=== PATIENT | female | born 1985 | race Caucasian/White ===

== ENCOUNTER → 2016-07-18 | Outpatient (CLI) | payer OTHER ==
[2014-09-02 16:53] VITALS: BP 102/62
[~2016-07-18] MED LIST: CHOL500024 INJ; CYCL10TA2 PO; TOPI50TA38 PO
--- NOTE | 2016-07-18 13:14 | KCIC ---
MR LUMBAR SPINE HISTORY:Reason For StudyReason: LOW BACK PAIN / Spl. Instructions: Prev. sent to Pacs / History: LBP into rt buttock, since 2015, NKI, Chronic LBP off on COMPARISON: None Technique: Sagittal T2, sagittal STIR, and sagittal T1-weighted images were obtained. Additional axial T1 and T2 weighted imaging was also performed. FINDINGS: Vertebral body height and alignment is maintained throughout the lumbar spine. There is a normal lumbar lordosis. No abnormal bone marrow signal is seen. The conus is in normal position without abnormal signal. There is degenerative disc dehydration at L4-L5. Paravertebral soft tissues are unremarkable. Visualized intra-abdominal contents are within normal limits. IMPRESSION: Mild degenerative disc dehydration at L4-L5. No central spinal or neural foraminal stenosis. Electronically signed by: Darrin Méndez (Jul 18, 2016 13:13:13)
== END | disposition home or self-care (01) ==
LOC: KCIC MRI 12:27
DX: M51.36 Other intervertebral disc degeneration, lumbar region (principal); E86.0 Dehydration
CPT/HCPCS: 72148

== ENCOUNTER → 2017-01-12 | Outpatient (CLI) | payer OTHER ==
[2014-09-02 16:53] VITALS: BP 102/62
--- NOTE | 2017-01-12 13:49 | KCIC ---
Indication: Irregular bleeding. Transabdominal and transvaginal pelvic sonography was performed. The uterus measures 6.1 x 2.1 x 4.4 cm. The endometrium is thin at 2 mm. No myometrial mass is detected. There are some calcifications in the region of the cervix, nonspecific but perhaps synechiae. The largest is approximately 9 mm x 8 mm in size. Ovarian evaluation is limited due to patient body habitus and bowel gas. The right ovary measures 2.2 x 1.4 x 1.6 cm and the left ovary measures 1.0 x 1.0 x 1.3 cm. There is blood flow to both ovaries. No adnexal mass or free fluid is seen. IMPRESSION: Essentially unremarkable transabdominal and transvaginal pelvic ultrasound. Electronically signed by: Robel Kingston MD (01/12/2017 1:46 PM) [id number]
== END | disposition home or self-care (01) ==
LOC: KCIC US 09:37
PROVIDERS: ATTEND Obstetrics & Gynecology
DX: N92.6 Irregular menstruation, unspecified (principal)
CPT/HCPCS: 76830; 76856

== ENCOUNTER → 2017-03-05 | Outpatient (CLI) | payer OTHER ==
[2014-09-02 16:53] VITALS: BP 102/62
--- NOTE | 2017-03-05 15:31 | RAD ---
APPROVED REPORT Test Type: Exercise Stress Nurse/Tech: issa bob Test Indications: chest pain Cardiac History and Allergies: NONE STATED, SEE EHR Medications: SEE EHR Medical History: FIBROMYALGIA, SEE EHR Resting ECG: SR Resting Heart Rate: 104 bpm Resting Blood Pressure: 123/81mmHg Pretest Chest Pain: No chest pain Nurse/Tech Notes LUNG SOUNDS CLEAR, S1S2 WNL. Consent: The procedure was explained to the patient in lay terms. Informed consent was witnessed. Ming eout was entered into [employer]. History and Stress Test performed by ANUPAM Abbott Stress Symptoms HEADACHE. POST EXERCISE Reason for Termination: Reached target heart rate Target HR: Yes Max HR: 170 bpm 90% of Maximum Predicted HR: 189 bpm Exercise duration: 8:00 min:sec, 3 Stage Exercise capacity: 10.0METs Max Blood Pressure: 146/77mmHg Blood Pressure response to exercise: Normal blood pressure response during stress. Heart Rate response to exercise: WNL Chest Pain: No. Arrhythmia: No. ST Change: No. INTERPRETATION Stress EKG Conclusion: Resting EKG shows a sinus tachycardia rate of 104 bpm and mild nonspecific ST segment changes. With exertion the patient has further mild nonspecific ST segment changes which are not diagnostic of ischemia. No EKG evidence of stress-induced ischemia. <Conclusion> Good exercise tolerance with the patient walking for 8 minutes on a Bernardo protocol. No reported chest pain with exertion. Mild tachycardia on baseline EKG. No EKG evidence of stress-induced ischemia. No significant arrhythmias. Low risk treadmill stress test.
== END | disposition home or self-care (01) ==
LOC: NM 11:59
PROVIDERS: ATTEND Internal Medicine
DX: M79.7 Fibromyalgia (principal); Z87.891 Personal history of nicotine dependence
CPT/HCPCS: 93017

== ENCOUNTER 2017-11-09 09:30 | Day surgery (SDC) | payer OTHER ==
[~2017-11-09 09:30] MED LIST changes: -CHOL500024 INJ; -CYCL10TA2 PO; +IV RINGERS,LACTATED 1000ML 1,000 ML IV; +ONDANSETRON PF 4 MG/2 ML VIAL. IV; +PROCHLORPERAZINE 10 MG/2 ML VIAL. IV; -TOPI50TA38 PO; +fentaNYL PF VIAL 100 MCG/2 ML VIAL IV
[2017-11-09 10:43] LABS: NEG OBC UR NEG; POS OBC UR POS; U PREG PATIENT NEGATIVE (NEG)
[2017-11-09] MEDS ORDERED: fentaNYL PF VIAL 100 MCG/2 ML VIAL ×2 (11:08→12:05)
[2017-11-09] MEDS: BUPIVACAINE-EPI 0.25%-1:200000 50 ML VIAL. (11:37)
[2017-11-09] MEDS ORDERED: KETOROLAC 30 MG/ML INJ. (11:59)
[2017-11-09] MEDS ORDERED: PROPOFOL 20 ML IV (12:04)
[2017-11-09] MEDS ORDERED: ONDANSETRON PF 4 MG/2 ML VIAL. (12:04)
[2017-11-09] MEDS ORDERED: LIDOCAINE 2% PF Vial for OR 5 ML VIAL. (12:04)
[2017-11-09] MEDS ORDERED: DEXAMETHASONE SOD PHOS 20 MG/5 ML VIAL. (12:04)
[2017-11-09] MEDS ORDERED: SEVOFLURANE 31 TO 60 MINUTES. IH (12:05)
[2017-11-09] MEDS: LIDOCAINE 1% PF 2 ML VIAL. ID (12:05)
[2017-11-09] MEDS: fentaNYL PF VIAL 100 MCG/2 ML VIAL IV ×2 (12:08→12:47)
[2017-11-09] MEDS: HYDROcodone/APAP 5/325MG 1 TAB TABLET PO (12:57)
== END 2017-11-09 13:30 | disposition home or self-care (01) ==
LOC: SURG 09:30
DX: D23.5 Other benign neoplasm of skin of trunk (principal); Z79.899 Other long term (current) drug therapy; M79.7 Fibromyalgia; K58.9 Irritable bowel syndrome, unspecified; Z87.19 Personal history of other diseases of the digestive system; Z98.890 Other specified postprocedural states; Z83.3 Family history of diabetes mellitus; Z82.49 Family history of ischemic heart disease and other diseases of the circulatory system; F17.210 Nicotine dependence, cigarettes, uncomplicated; Z88.2 Allergy status to sulfonamides; Z88.1 Allergy status to other antibiotic agents; Z88.5 Allergy status to narcotic agent; K21.9 Gastro-esophageal reflux disease without esophagitis; Z87.442 Personal history of urinary calculi; Z72.89 Other problems related to lifestyle
CPT/HCPCS: 11404; 81025; 88304; A7015; J0690; J1100; J1885; J2001; J2405; J2704; J3010

== ENCOUNTER → 2019-02-14 | Outpatient (CLI) | payer BC ==
[2017-11-09 13:21] VITALS: BP 115/66
[~2019-02-14] VITALS: Ht 160 cm; Wt 86.2 kg
[~2019-02-14] MED LIST changes: +ADAL40PE SQ; +BIOT5TAB PO; +CHOL500024 PO; +CYCL10TA2 PO; +HYDR-3164 PO; -IV RINGERS,LACTATED 1000ML 1,000 ML IV; +MILN50TA PO; -ONDANSETRON PF 4 MG/2 ML VIAL. IV; -PROCHLORPERAZINE 10 MG/2 ML VIAL. IV; +SINCALIDE 1.72 MCG in IV NORMAL SALINE 50ML 30 ML IV ONE; +TOPI50TA38 PO; +ZOLP10TA PO; -fentaNYL PF VIAL 100 MCG/2 ML VIAL IV
--- NOTE | 2019-02-14 10:06 | RAD ---
HEPATOBILIARY SCAN History: Abdominal pain, nausea, vomiting x3 months. Comparison: Limited abdominal ultrasound, same day. Procedure: Serial static images are obtained of the liver and biliary system in the frontal projection following IV administration of 5.5 mCi of Technetium 99m Choletec. The gallbladder ejection fraction portion of the study is not performed. Findings: There is prompt hepatic clearance of tracer from the blood pool. There is homogeneous distribution throughout the liver. There is normal filling of the gallbladder and normal emptying into the biliary system and small bowel. IMPRESSION: The cystic duct and common bile duct are patent. Negative for acute cholecystitis. Electronically signed by: Dominic Chandra MD (02/14/2019 10:04 AM) [id number]
--- NOTE | 2019-02-14 10:42 | RAD ---
Right upper quadrant abdominal ultrasound 02/14/2019 INDICATION: Right upper quadrant pain, nausea, vomiting COMPARISON STUDY: None Discussion: Ultrasound evaluation of the right upper abdomen was performed. Static images are submitted to PACS. Visualized portions of the pancreas are within normal limits. Visualized IVC is grossly unremarkable. The liver is normal in size measuring 15 cm longitudinally. Hepatic echotexture is within normal limits. No intrahepatic biliary dilatation is seen. The gallbladder demonstrates a large, mobile .The gallbladder wall is non thickened. No pericholecystic fluid is identified. Sonographic Sawyer sign is negative. The right kidney is normal in appearance measuring 11 cm in length. IMPRESSION: 1.Cholelithiasis without sonographic evidence of cholecystitis. 2. Otherwise normal sonographic appearance of the right upper quadrant. Electronically signed by: Gatito Hanna MD (02/14/2019 10:39 AM) [id number]
== END | disposition home or self-care (01) ==
LOC: US 14:31
PROVIDERS: ATTEND Internal Medicine Gastroenterology
DX: K80.20 Calculus of gallbladder without cholecystitis without obstruction (principal)
CPT/HCPCS: 76705; 78227; A9537

== ENCOUNTER → 2019-03-31 | Outpatient (CLI) | payer BC ==
[2017-11-09 13:21] VITALS: BP 115/66
[~2019-03-31] MED LIST changes: +OXYC-325 PO; -SINCALIDE 1.72 MCG in IV NORMAL SALINE 50ML 30 ML IV ONE
[2019-03-31 10:55] LABS: BASO # 0.1 x10^3/uL (0.0-0.2); BASO % 1 % (0-3); EOS # 0.1 x10^3/uL (0.0-0.7); EOS % 2 % (0-3); HEMATOCRIT 38.1 % (36.0-47.0); HEMOGLOBIN 12.8 g/dL (12.0-15.5); LYMPH # 1.5 x10^3/uL (1.0-4.8); LYMPH % 30 % (24-48); MEAN CORPUSCULAR HEMOGLOBIN 32 pg (25-35); MEAN CORPUSCULAR HGB CONC 34 g/dL (31-37); MEAN CORPUSCULAR VOLUME 96 fL (79-100); MONO # 0.3 x10^3/uL (0.0-1.1); MONO % 5 % (0-9); NEUT # 3.2 x10^3/uL (1.8-7.7); NEUT % 62 % (31-73); PLATELET COUNT 376 x10^3/uL (140-400); RED BLOOD COUNT 3.96 x10^6/uL (3.50-5.40); RED CELL DISTRIBUTION WIDTH 12.9 % (11.5-14.5); WHITE BLOOD COUNT 5.2 x10^3/uL (4.0-11.0)
[2019-03-31 11:06] LABS: ALBUMIN 3.5 g/dL (3.4-5.0); CALCIUM 9.1 mg/dL (8.5-10.1); CREATININE 0.8 mg/dL (0.6-1.0); GFR 82.6; POTASSIUM 4.1 mmol/L (3.5-5.1); TOTAL BILIRUBIN 0.3 mg/dL (0.2-1.0)
== END | disposition home or self-care (01) ==
LOC: SURGPAT 09:59
PROVIDERS: ATTEND Surgery
DX: Z01.818 Encounter for other preprocedural examination (principal); K80.20 Calculus of gallbladder without cholecystitis without obstruction
CPT/HCPCS: 36415; 80048; 82040; 82247; 85025

== ENCOUNTER 2019-04-07 06:40 | Day surgery (SDC) | payer BC ==
[~2019-04-07] VITALS: Ht 162.6 cm; Wt 90.5 kg
[~2019-04-07 06:40] MED LIST changes: +BUPIVACAINE-EPI 0.5%-1:200000 MPF 30 ML VIAL. INJ ONE
[2019-04-07] MEDS ORDERED: LIDOCAINE 1% PF 2 ML VIAL. ID PRN (07:00)
[2019-04-07] MEDS ORDERED: IV RINGERS,LACTATED 1000ML 1,000 ML IV SCH (07:00)
[2019-04-07] MEDS ORDERED: ONDANSETRON PF 4 MG/2 ML VIAL. IV PRN (07:00)
[2019-04-07] MEDS ORDERED: PROCHLORPERAZINE 10 MG/2 ML VIAL. IV PRN (07:00)
[2019-04-07] MEDS ORDERED: fentaNYL PF VIAL 100 MCG/2 ML VIAL IV PRN (07:00)
[2019-04-07] MEDS ORDERED: GLUCAGON,HUMAN RECOMBINANT 1 MG/ML VIAL. ONE (07:27)
[2019-04-07] MEDS ORDERED: IOHEXOL 300 MG/ML 50 ML VIAL. ONE (07:28)
[2019-04-07] MEDS ORDERED: SURGICEL HEMOSTAT 4X8 EACH. ONE (07:28)
[2019-04-07] MEDS ORDERED: ROCURONIUM 50 MG/5 ML VIAL. ONE (07:37)
[2019-04-07] MEDS ORDERED: DEXAMETHASONE SOD PHOS 4 MG/ML VIAL ONE ×2 (07:37→08:23)
[2019-04-07] MEDS ORDERED: MIDAZOLAM HCL/PF 2 MG/2 ML VIAL. ONE (07:37)
[2019-04-07] MEDS ORDERED: PROPOFOL 20 ML IV ONE (07:37)
[2019-04-07] MEDS ORDERED: ONDANSETRON PF 4 MG/2 ML VIAL. ONE (07:37)
[2019-04-07] MEDS ORDERED: LIDOCAINE 2% PF 5 ML VIAL. ONE (07:38)
[2019-04-07] MEDS ORDERED: KETOROLAC 30 MG/ML VIAL. ONE (07:38)
[2019-04-07] MEDS ORDERED: SEVOFLURANE > 120 MINUTES. IH ONE (07:41)
[2019-04-07] MEDS ORDERED: ESMOLOL 100 MG/10 ML VIAL. IVP ONE (08:28)
[2019-04-07] MEDS ORDERED: NEOSTIGMINE METHYLSULFATE 5 MG/5 ML SYRINGE. ONE (08:36)
[2019-04-07] MEDS ORDERED: fentaNYL PF VIAL 100 MCG/2 ML VIAL ONE ×2 (08:37→09:06)
[2019-04-07] MEDS ORDERED: GLYCOPYRROLATE 1 MG/5 ML VIAL. ONE (08:37)
--- NOTE | 2019-04-07 09:06 | RAD ---
Cholangiogram fluoroscopy 04/07/2019 8:00 AM INDICATION: Cholangiogram in the OR COMPARISON: Limited ultrasound abdomen 02/14/2019 TECHNIQUE: 3 fluoroscopic spot views are provided. Fluoroscopy time: 0.1 minutes FINDINGS: Fluoroscopy is provided for intraoperative use. Cholecystectomy changes are present. There is contrast opacification of the cystic duct, common bile duct and duodenum. Minimal opacification of the intrahepatic biliary tree. IMPRESSION: 1. Cholangiogram performed in the OR utilizing fluoroscopy. 2. Please refer to the separate operative report for further details. Electronically signed by: Joy Back MD (04/07/2019 9:03 AM) [id number]
[2019-04-07] MEDS: fentaNYL PF VIAL 100 MCG/2 ML VIAL IV PRN ×4 (09:14→09:49)
--- NOTE | 2019-04-07 09:19 | PDOC ---
BRIEF OPERATIVE NOTE Date: Apr 07, 2019 Pre-Op Diagnosis symptomatic cholelithiasis Post-Op Diagnosis same Procedure Performed l/s cholecystectomy with cholangiograms Surgeon Sammy Lpn Rn Rosa GARCIA Anesthesia Type: General Blood Loss 25cc IV Fluid 1000cc Specimens Obtained GB Findings supple GB, normal grams Complications none Operative Note Wk # [id number] PASQUALE ROCHE MD Apr 07, 2019 09:19
--- NOTE | 2019-04-07 09:24 | DISCH ---
DISCHARGE INSTRUCTIONS Condition on Discharge Condition on Discharge: Stable Activity After Discharge Activity Instructions for Disc: Activity as tolerated, Avoid exertion Lifting Instructions after Dis: No heavy lifting Driving Instructions after Dis: Do not drive (3-4 days) Diet after Discharge Diet after Discharge: Regular Wound Incision Care Wound/Incision Care: Ice to area for comfort Other wound/incision instructi: romain show Follow-Up Follow up with: Sammy two weeks PASQUALE ROCHE MD Apr 07, 2019 09:24
--- NOTE | 2019-04-07 09:33 | OP ---
DATE OF SURGERY: 04/07/2019 PREOPERATIVE DIAGNOSIS: Symptomatic cholelithiasis. POSTOPERATIVE DIAGNOSIS: Symptomatic cholelithiasis. PROCEDURE: Laparoscopic cholecystectomy with cholangiogram. SURGEON: Jai Roche MD. CYLINDER INSPECTOR AND TESTER: RADHA Vasquez. ANESTHESIA: General endotracheal. BLOOD LOSS: Less than 25. INTRAVENOUS FLUIDS: 1 liter. INDICATIONS: The patient is a 34-year-old with right upper quadrant and epigastric pain after meals. Ultrasound shows stones. She is brought for cholecystectomy. OPERATIVE FINDINGS: The liver was smooth and sharp. The gallbladder was supple with some omental adhesions along the inferior surface. Cholangiograms were normal. Visual inspection of the remainder of the abdomen failed to reveal obvious abnormalities. DESCRIPTION OF PROCEDURE: The patient brought to the operating suite, given a general endotracheal anesthetic and the abdomen prepped and draped in usual sterile fashion. A supraumbilical incision was infiltrated with local anesthetic, incised and a 5 mm Visiport used to carefully gain access into the abdominal cavity, taking care to avoid injury to abdominal contents. Pneumoperitoneum established. Camera inserted. Inspection carried out with results as noted above. With the table in reverse Trendelenburg rolled to the left, the epigastric and midclavicular ports were placed under direct vision. The lateral port location was used for an "alligator" grasper. The gallbladder was retracted superolaterally and omental adhesions carefully taken down with cautery and blunt dissection, taking care to avoid injury to the adjacent bowel. The cystic duct and cystic artery were identified. The duct was clipped on the gallbladder side. Cholangiograms were made. These were normal. In light of this, the catheter was removed. The cystic duct was clipped x 3 and divided, taking care to avoid injury or compromise the common duct. Cystic artery was clipped and divided. The gallbladder freed from the bed and placed in an EndoCatch bag. Good hemostasis in the fossa with no evidence of bile leak seen. Table returned to level. Gallbladder delivered through the epigastric incision. Epigastric incision closed with interrupted 0 Vicryl suture. Intra-abdominal pressure decreased to 6 cm of water. No bleeding from the epigastric closure or from the midclavicular port site after its removal or from the lateral location after removal of the alligator grasper. Abdomen decompressed, camera slowly removed, no bleeding seen. Skin incisions closed with subcuticular 4-0 Monocryl. Steri-Strips and sterile dressings applied. The patient awakened from her anesthetic and taken to the recovery room in satisfactory condition. JAI ROCHE MD DR: TRACIE/belinda JOB#: [id number] / [id number]
[2019-04-07] MEDS ORDERED: oxyCODONE/APAP 5/325 1 TAB TABLET PO ONE (10:00)
[2019-04-07] MEDS ORDERED: OXYC-325 PO (10:03)
[2019-04-07] MEDS ORDERED: DOCU50CA9 PO (10:03)
[2019-04-07 10:45] VITALS: BP 128/69
== END 2019-04-07 11:15 | disposition home or self-care (01) ==
LOC: SURG 06:40
PROVIDERS: ATTEND Surgery
DX: K80.20 Calculus of gallbladder without cholecystitis without obstruction (principal); M79.7 Fibromyalgia; K51.90 Ulcerative colitis, unspecified, without complications; Z98.890 Other specified postprocedural states; Z88.6 Allergy status to analgesic agent; Z88.1 Allergy status to other antibiotic agents; Z88.8 Allergy status to other drugs, medicaments and biological substances; Z87.891 Personal history of nicotine dependence
CPT/HCPCS: 47563; 74300; 81025; A7015; J0696; J0780; J1100; J1885; J2001; J2250; J2405; J2704; J2710; J3010; J3490; J7030; J7120; Q9967; J1610

== ENCOUNTER → 2019-05-02 | Outpatient (CLI) | payer BC ==
[2019-04-07 10:45] VITALS: BP 128/69
[~2019-05-02] MED LIST changes: -BUPIVACAINE-EPI 0.5%-1:200000 MPF 30 ML VIAL. INJ ONE; +DOCU50CA9 PO
--- NOTE | 2019-05-02 09:34 | KCIC ---
Right breast ultrasound: Reason for examination: Right breast pain behind the nipple. No nipple discharge. Right whole breast ultrasound including evaluation of all 4 quadrants and the retroareolar and axillary regions of the right breast was performed. There is some ductal ectasia which is most prominent in the retroareolar 9:00 position. At the 9:00 position 7 cm from the nipple there is a 7.9 mm hypoechoic fibrocystic type lesion. In the 9:00 position 6 cm from the nipple, there is a 7.7 mm hypoechoic fibrocystic type lesion. In the 12:00 position 3 cm from the nipple, there is a 6.2 mm hypoechoic fibrocystic lesion. No other focal or suspicious-appearing nodules are seen. No abnormal appearing lymph nodes are seen in the axilla. IMPRESSION: Small benign-appearing fibrocystic type nodules in the 9:00 and 12:00 positions of the right breast. No suspicious abnormalities are seen. Recommend 6 month follow-up with ultrasound. BI-RADS Category 3: Probably Benign. "Our facility is accredited by the [employer] Mammography Program." This patient's information has been entered into a reminder system for the patient to be notified with the results of her examination and a target date for the next mammogram. Electronically signed by: Bobbi Andre MD (05/02/2019 9:31 AM) [id number]
== END | disposition home or self-care (01) ==
LOC: KCIC US 08:42
PROVIDERS: ATTEND Obstetrics & Gynecology
DX: N60.41 Mammary duct ectasia of right breast (principal); N63.11 Unspecified lump in the right breast, upper outer quadrant
CPT/HCPCS: 76641